=== PATIENT | male | born 1925 | race Caucasian/White ===

== ENCOUNTER → 2017-08-17 | Outpatient (CLI) | payer MEDICARE, OTHER | END | disposition home or self-care (01) | LOC: CFH 09:30 | PROVIDERS: ATTEND Nurse Practitioner Primary Care | DX: Z00.01 Encounter for general adult medical examination with abnormal findings (principal); M19.021 Primary osteoarthritis, right elbow; R53.83 Other fatigue; D64.9 Anemia, unspecified; I49.9 Cardiac arrhythmia, unspecified ==

== ENCOUNTER → 2017-09-17 | Outpatient (CLI) | payer MEDICARE | END | disposition home or self-care (01) | LOC: PETCFH 08:06 | PROVIDERS: ATTEND Internal Medicine | DX: S42.401A Unspecified fracture of lower end of right humerus, initial encounter for closed fracture (principal); R93.8 Abnormal findings on diagnostic imaging of other specified body structures | CPT/HCPCS: 78306; A9503 ==